=== PATIENT | female | born 1975 | race Caucasian/White ===

== ENCOUNTER 2019-01-30 09:18 | Outpatient (CLI) | payer OTHER, SELFPAY ==
[2019-01-30 11:00] LABS: TSH (W/Ref FT4) 2.37 uIU/mL (0.358-3.74)
== END 2019-01-30 09:38 ==
PROVIDERS: PCP Internal Medicine; Referring Provider Internal Medicine; Visit Provider Nurse Practitioner Family
DX: Z86.39 Personal history of other endocrine, nutritional and metabolic disease (principal)
CPT/HCPCS: 36415; 84443

== ENCOUNTER 2019-08-28 00:54 | Outpatient (CLI) | payer OTHER, SELFPAY ==
--- NOTE | 2019-08-28 15:34 | DI.MAMMO_ITS ---
EXAM: MG MAMMO SCREENING CLINICAL HISTORY: screening TECHNIQUE: Mammograms were interpreted according to the usual protocol including computer analysis w [employer] CAD system, tomosynthesis and C-view imaging. COMPARISON: FINDINGS: Breasts are of moderate density with fairly symmetrical distribution of fibroglandular tissue. No do minant mass or clumped microcalcification is identified in either breast. There are biopsy clips in the right breast. Comparison with prior studies including July 2017 shows no gross interval conley ge appearance of the breasts except for interval decrease in prominence, probably representing resect ion, of 2 areas of nodularity of the right breast. IMPRESSION: No specific evidence of malignancy at this time. Routine screening examinations are suggested at yea rly intervals due to history of breast carcinoma Category 1, breast density category B
== END 2019-08-28 01:14 ==
PROVIDERS: PCP Internal Medicine; Visit Provider Nurse Practitioner Family
DX: Z12.31 Encounter for screening mammogram for malignant neoplasm of breast (principal); Z85.3 Personal history of malignant neoplasm of breast
CPT/HCPCS: 77063; 77067

== ENCOUNTER 2020-09-17 00:55 | Outpatient (CLI) | payer OTHER, BC, SELFPAY ==
--- NOTE | 2020-09-17 07:30 | DI.MAMMO_ITS ---
EXAM: MG MAMMO SCREENING CLINICAL HISTORY: screening,Z12.39 TECHNIQUE: Bilateral full field digital CC and MLO mammographic images were obtained with 3D tomosyn thesis and utilizing computer aided detection (CAD). COMPARISON: Available for comparison. FINDINGS: Masses/Architectural Distortion: None seen. There are old right breast biopsy clips again seen. Ther e is a stable of right retroareolar nodular density. Microcalcifications: No suspicious pleomorphic-type are seen. Skin Thickening/Nipple Retraction: None. IMPRESSION: 1. No significant interval change with no specific features of malignancy noted. 2. Unless there is more urgent need, screening mammography is recommended, as per [employer] [place] guidelines. BI-RADS Category 2 - Benign Findings Breast Density - Category B - Scattered areas of fibroglandular density Breast density category C or D implies that the patient has dense breast tissue. Dense breast tissue is very common and is not abnormal but dense breast tissue can make it harder to find cancer on a ma mmogram. Also, dense breast tissue may increase their breast cancer risk. This information about the result of the mammogram report was provided to the patient to raise their awareness. Use this report when you speak with the patient about their risks for breast cancer, which includes their family hist ory. At that time, you may recommend for more screening tests (Ultrasound or MRI) as they might be us eful based on their risk. A negative radiographic report should not delay biopsy if a dominant or clinically suspicious mass is present. Up to ten percent of cancers are not identified on mammography. A negative report may reinforce clinical impression. Adenosis and dense breasts may obscure an underlying neoplasm. False positive reports average 6 to 10%. Patient will receive a letter notifying them of these results.
== END 2020-09-17 00:56 ==
PROVIDERS: PCP Internal Medicine; Visit Provider Nurse Practitioner Family
DX: Z12.31 Encounter for screening mammogram for malignant neoplasm of breast (principal)
CPT/HCPCS: 77063; 77067

== ENCOUNTER 2021-03-17 10:49 | Outpatient (REF) | payer OTHER, BC, SELFPAY ==
--- NOTE | 2021-03-17 10:00 | PAPFT_PTH ---
PATIENT: Ilda Trotter LOC: [facility] U#:[id number] AGE/SX: 45/F ROOM: RE03/17/[address]: SHARON Rondon : 1975 BED: DIS: 03/17/2021 SPEC #: [id number] RECD: 03/17/21 13:04 STATUS: DEMARIO REGayla #: [id number] AARON: 03/17/21 10:[address]: Flavia Lawson DEPT: PENDING SALE TO [facility] Cytology RECD BY: Bella Hollins ENTERED: 03/17/21 13:04 SP TYPE: PAPFT OTHR DR: Flavia Briceno Tissues: 1 - CX/ENDOCX FOR PAP SMEARS Procedures: PAP THIN PREP/UVM Screening HPV DNA PROBE Comments: [id number]
== END 2021-03-17 10:50 | disposition home or self-care (01) ==
LOC: LBN 10:49
PROVIDERS: PCP Internal Medicine; Visit Provider Nurse Practitioner Family
DX: Z12.4 Encounter for screening for malignant neoplasm of cervix (principal); Z11.51 Encounter for screening for human papillomavirus (HPV)
CPT/HCPCS: 88142; 87624

== ENCOUNTER 2021-11-27 12:45 | Outpatient (REF) | payer OTHER, BC, SELFPAY ==
[2021-11-27 11:33] LABS: Bilirubin Negative (Negative); Blood Negative (Negative); Clarity Clear (Clear); Glucose Negative (Negative); Ketones Negative (Negative); Leukocyte Esterase Negative (Negative); Nitrite Negative (Negative); Specific Gravity >= 1.030 (1.005-1.025); Urobilinogen 0.2 EU/dL (Up TO 0.2)
== END 2021-11-27 12:46 | disposition home or self-care (01) ==
LOC: LBN 12:45
PROVIDERS: PCP Internal Medicine; Visit Provider Nurse Practitioner Family
DX: R10.2 Pelvic and perineal pain (principal)
CPT/HCPCS: 81003; 87086

== ENCOUNTER 2021-12-15 00:17 | Outpatient (CLI) | payer OTHER, BC, SELFPAY ==
--- NOTE | 2021-12-15 06:45 | DI.MAMMO_ITS ---
Exam(s) MAMMO SCREENING EXAM: MAMMO SCREENING CLINICAL HISTORY: screening,z12.39 TECHNIQUE: Mammograms were interpreted according to the usual protocol including computer analysis w [employer] CAD system, tomosynthesis and C-view imaging. COMPARISON: 2013 through 2020 FINDINGS: The breasts are composed of scattered fibroglandular densities, Breast Density category B. No suspicious masses or suspicious microcalcifications are seen. Biopsy clips are again noted in the superior inferior right breast adjacent to small nodules. No skin thickening or abnormal axillary lymph nodes are seen. There has been no significant change from prior exams. IMPRESSION: BI-RADS Category 1, Negative mammogram Yearly screening mammography is recommended. Breast Density - Category B, scattered fibroglandular densities. A negative radiographic report should not delay biopsy if a dominant or clinically suspicious mass is present. Up to ten percent of cancers are not identified on mammography. A negative report may reinforce clinical impression. Adenosis and dense breasts may obscure an underlying neoplasm. False positive reports average 6 to 10%. Patient will receive a letter notifying them of these results.
== END 2021-12-15 00:37 ==
PROVIDERS: PCP Internal Medicine; Visit Provider Nurse Practitioner Family
DX: Z12.31 Encounter for screening mammogram for malignant neoplasm of breast (principal)
CPT/HCPCS: 77063; 77067

== ENCOUNTER 2022-10-30 16:26 | Emergency (ER) | payer BC, SELFPAY ==
[2022-10-30 16:29] VITALS: BP 132/90; PULSE 62; RESP 18; TEMP 36.6; O2SAT 100
--- NOTE | 2022-10-30 16:43 | ED.GENADUL_ITS ---
Discharge Plan Disposition Patient Disposition: Home Discharge Details Clinical Impression: Acute right flank pain Primary Care Provider: Flavia Briceno ED Provider: Jimmie Frank Home Meds and New Rx's Prescriptions: Continued clobetasol 0.05 % ointment 1 applic topical .COMPLEX Qty: 45 4RF Rx Instructions: 1 applic topically rub tiny amount on vulva daily x2w then twice weekly; estradiol [Estrace] 0.01 % (0.1 mg/gram) cream 1 appful vaginal DAILY Qty: 42.5 4RF Rx Instructions: for for 2 weeks then twice weekly estradiol 1 mg tablet See Rx Instructions .ROUTE .COMPLEX Qty: 90 3RF Dose Instruction: TAKE ONE TABLET BY MOUTH EVERY DAY Rx Instructions: TAKE ONE TABLET BY MOUTH EVERY DAY Discharge Instructions Instructions: Flank Pain (ED) Additional Instructions: Please read all of the information that accompanies these instructions. You were seen in the emergency department for your flank pain. Your CAT scan showed no acute abnormalities in your stomach. Please schedule an appointment with your primary care provider next week. Please return to the emergency department if you develop fevers vomiting that does not stop or notice any rash on her abdomen. Medical Decision Making This is an overall well-appearing normothermic and not tachycardic 46-year-old female with right-sided flank pain and right lower quadrant pain concerning for ureterolithiasis versus appendicitis versus atypical diverticulitis and possibly pancreatitis. Patient is not having any chest pain to suggest ACS. No cough nor shortness of breath to suggest pneumonia. I considered PE however the patient denies any shortness of breath and does not have any calf tenderness nor any recent immobilization to suggest increased risk of PE. Furthermore her pain radiates from her right flank down into her right lower quadrant making PE less likely. She is not technically PERC negative based on her hormone use however given my low suspicion for PE I did not feel that she required a D- dimer. Given remote history of laparoscopic cholecystectomy I am not concerned for cholecystitis. No vomiting to suggest SBO. No pain out of proportion to suggest necrotizing soft tissue infection. No rash to abdomen to suggest zoster. Patient is not recently nor is she having any left upper quadrant pain to suggest splenic arterial aneurysm. No fevers nor dysuria nor frequency so doubt pyelonephritis. No abnormal vaginal discharge to suggest PID. Will obtain labs, CT scan with IV contrast, and urinalysis. 8:07 PM Patient's labs did show trace ketonuria and she had very mild hyperglycemia with a serum glucose of 117. She had no anion gap and a normal bicarbonate so I am not concerned for DKA. Her lipase was normal. She had no anemia nor thrombocytopenia nor any leukocytosis. She had no episodes of emesis in the emergency department. I met with the patient and I advised her that if she developed any shortness of breath chest pain worsening abdominal pain any rash to her abdomen or if she had any concerns that she should return to the emergency department. I advised her of her contralateral left-sided nonobstructing nephrolithiasis. I asked health unit aide tech Lauren to arrange for outpatient PCP follow-up in the next week. HPI General Date/Time Provider Initiated Documentation: 10/30/22 16:43 . HPI Narrative: This is a 46-year-old female with elevated BMI in the emergency department in the setting of right-sided flank pain and right lower quadrant tenderness. She denies history of kidney stones that have been diagnosed but feels as if she may have had them in the past. She said that the pain radiates from her right right flank down into her bladder. Her symptoms began yesterday. She has had similar symptoms in the past but her symptoms worsened today. She has not had any recent falls in the right side. She denies any recent strenuous activities. Remote surgical history significant for hysterectomy oophorectomy laparoscopic cholecystectomy and gastric sleeve. She has been nauseous today but not vomiting. She denies dysuria and frequency. No fevers chest pain history of PEs or DVTs. In the setting of her remote hysterectomy she is on estradiol. She has had no cough nor any shortness of breath although she does note that her pain is worse when she takes a deep breath. She has not noticed any rash to her abdomen. Related Data Home Medications Medication Instructions Recorded Confirmed estradiol 1 mg tablet See Rx Instructions .Route 05/13/22 06/24/22 .COMPLEX #90 tabs clobetasol 0.05 % topical ointment 1 applic topical .COMPLEX #45 grams 06/24/22 06/24/22 estradiol 0.01% (0.1 mg/gram) 1 appful vaginal DAILY #42.5 grams 06/24/22 06/24/22 vaginal cream (Estrace) Previous Rx's Medication Instructions Recorded estradiol 1 mg tablet See Rx Instructions .Route 05/13/22 .COMPLEX #90 tabs clobetasol 0.05 % topical ointment 1 applic topical .COMPLEX #45 grams 06/24/22 estradiol 0.01% (0.1 mg/gram) 1 appful vaginal DAILY #42.5 grams 06/24/22 vaginal cream (Estrace) Allergies Allergy/AdvReac Type Severity Reaction Status Date / Time NSAIDS (Non-Steroidal AdvReac Verified 10/30/22 16:35 Anti-Inflamma General Stated Complaint: FlankPain ARMANDO: 4 PFSH All Active Problems (Updated 10/30/22 @ 20:09 by Jimmie Frank MD) Acute right flank pain (Acute) Abnormal skin of vulva (Acute) Symptoms consistent with lichenification rather than decreased estrogen. Plan Rx for clobetasol and follow-up 06/2022 Vaginal dryness, menopausal (Acute) Dyspareunia in female (Acute) Hormone replacement therapy (Acute) 2016. Estradiol 1 mg/day after surgical menopause Medical History (Updated 10/30/22 @ 20:09 by Jimmie Frank MD) Diabetes Had Gastric sleeve procedure08/27/20 DM resolved Erythema nodosum Hypothyroid Vaginal bleeding 11/2021. Single episode after supracervical hysterectomy and BSO. Patient on estrogen 1 mg/day since 2016. No plan to change hormone formulation. Surgical History (Updated 06/24/22 @ 18:36 by Mary Hopper MD) section X 2 Cholecystectomy Endometrial Biopsy 09/11/14-[facility] [place] [facility] Hysterectomy, Laproscopic (~01/2017) Supra - cervical Oophrectomy, Left Oophrectomy, Right (~01/2017) R Salpingo-oophrectomy with hyst S/P laparoscopic supracervical hysterectomy (08/06/17) and R salpingo-oophrectomy 2016 - Dr Jaleel Perkins L oophrectomy Status post tonsillectomy and adenoidectomy Tonsillectomy and adenoidectomy Family History Father Leukemia Grandfather Diabetes CAD (coronary artery disease) Maternal Aunt Personal history of malignant neoplasm BREAST Brother Cancer of kidney Maternal Cousin Breast cancer paternal first cousin Maternal Cousin Breast cancer paternal first cousin Social History (Updated 11/16/22 @ 18:33 by Mary Hopper MD) Smoking/Tobacco Use Status: Never Smoking risk assessment performed?: Yes Drug use: Never Household members: spouse Number of Children: 2 current occupation: [employer] Do you feel safe at home: Yes Female Reproductive History Menstrual Menopause type: surgical History History 2 Para 2 Hx # Term Pregnancies Multiple births Hx # Pregnancies Ectopic pregnancies AB induced Hx Number of Living Children AB spontaneous Exam Narrative Exam Narrative: General: Well-appearing in no acute distress speaking in complete sentences. Head: Normocephalic, atraumatic Ear, nose, mouth, throat: Grossly normal inspection. Normal voice, handling secretions normally. Neck: Trachea midline. Cardiovascular: Well-perfused distal extremities. Regular rate and rhythm. Respiratory: Nonlabored respiration. Clear lungs bilaterally Gastrointestinal: Moderately distended abdomen with right CVA tenderness. Right lower quadrant tenderness. No rebound. No guarding. Musculoskeletal: No edema. Moving all 4 extremities spontaneously. Skin: Normal for age and race, grossly normal temperature and turgor. No acute rash. Neurologic: Alert and appropriate, no apparent acute deficits. Psychiatric: Mood and manner are appropriate. Grooming and personal hygiene are appropriate. Course Vital Signs Vital signs: Vital Signs Temperature 36.6 C 10/30/22 16:29 Pulse 62 10/30/22 16:29 Respiratory Rate 18 10/30/22 16:29 Blood Pressure 132/90 10/30/22 16:29 Pulse Oximetry 100 10/30/22 16:29 Temperature 36.6 C 10/30/22 16:29 Temperature Source Oral 10/30/22 16:29 Pulse 62 10/30/22 16:29 Respiratory Rate 18 10/30/22 16:29 Blood Pressure 132/90 10/30/22 16:29 Blood Pressure Position Sitting 10/30/22 16:29 Pulse Oximetry 100 10/30/22 16:29 Oxygen Delivery Method Room Air 10/30/22 16:29 Oxygen Flow Rate 0 10/30/22 16:29
--- NOTE | 2022-10-30 16:45 | DI.CT_ITS ---
Exam(s) CT ABDOMEN PELVIS W EXAM: CT ABDOMEN PELVIS W CLINICAL HISTORY: Right flank pain. TECHNIQUE: Imaging Protocol: Axial computed tomography images with coronal and sagittal reformatted images were created and reviewed CONTRAST MATERIAL: Intravenous: Omnipaque 350 Contrast volume:100 ml Oral: / no COMPARISON: No exams were available for comparison FINDINGS: ABDOMEN: Lung Bases: Normal where visualized. Small hiatal hernia. Suture material noted at lower esophagus and upper stomach. Liver: Normal density. No measurable mass. Gallbladder and biliary tract: Status post cholecystectomy. No radiodense calculus or dilation. Pancreas: Normal density, no abnormal calcifications or inflammatory process. Spleen: Cysts versus hemangioma superior spleen. Kidneys: Normal size, contour and axis. Tiny nonobstructing stone lower pole left kidney. No obstru ctive uropathy. No suspicious masses seen. Adrenal glands: No masses seen. Abdominal Aorta: Abdominal portion non-dilated. Soft tissues: Unremarkable. PELVIS: Bladder: No gross wall thickening. No calculi.No focal mass. Bowel: Diverticulosis. No evidence of diverticulitis. No obstruction. No bowel wall thickening. A ppendix normal. Peritoneal cavity: No ascites, collection or mesenteric inflammatory response. Bones: Degenerative changes in the lumbar spine greatest at L4-5 and L5-S1. Reproductive organs: Within normal limits. Lymph nodes: Unremarkable. Impression: No acute abnormality. Incidental findings as mentioned above. RADIATION DOSE DELIVERED: 1,357.33mGy.cm Total DLP DATA REPOSITORY: All CT scans at this facility are submitted to the National Radiology Data Registry (NRDR) Dose Index Registry (DIR) with the [employer] (ACR). RADIATION OPTIMIZATION: All CT scans at this facility use at least one of these dose optimization te chniques: automated exposure control; mA and/or kV adjustment per patient size (includes targeted exa ms where dose is matched to clinical indication); or iterative reconstruction.
[2022-10-30 17:03] LABS: Abs Immature Grans 0.02 10^3/uL (0.0-0.06); Absolute Basophil Count 0.03 10^3/uL (0.0-0.2); Absolute Eosinophil Count 0.16 10^3/uL (0.0-0.7); Absolute Lymphocyte Count 2.82 10^3/uL (1.2-3.4); Absolute Monocyte Count 0.47 10^3/uL (0.1-0.8); Absolute Neutrophil Count 3.78 10^3/uL (1.2-6.7); Basophils % 0.4; Eosinophils % 2.2; HCT 40.5 % (36.0-46.0); HGB 13.2 g/dL (11.2-15.7); Immature Grans % 0.3; Lymphocytes % 38.7; MCH 29.1 pg (27.0-33.0); MCHC 32.6 % (32.0-36.0); MCV 89 fL (80-95); MPV 11.4 fL (8.0-11.0); Monocytes % 6.5; Neutrophils % 51.9; Platelet Count 267 10^3/uL (130-400); RBC 4.53 10^6/uL (3.93-5.22); RDW 12.7 % (11.7-14.6); RDW-SD 41.7 fL; WBC 7.28 10^3/uL (4.4-10.8)
[2022-10-30 17:06] LABS: Bilirubin Negative (Negative); Blood Negative (Negative); Clarity Clear (Clear); Glucose Negative (Negative); Ketones Trace mg/dL (Negative); Leukocyte Esterase Negative (Negative); Nitrite Negative (Negative); Specific Gravity >= 1.030 (1.005-1.025); Urobilinogen 0.2 mg/dL (Up to 0.2); pH 5.5 (5-8)
--- OUTSIDE RECORDS SUMMARY | 2022-10-30 17:09 | XMS_ITS | Continuity of Care Document ---
Author Name Unknown Organization [facility] Address [address] [place] [address] Care Team Providers Care Taxicab Starter Name Role Phone Janak, Flavia Mynor Primary Care Physician Encounter [facility] Date(s): 05/29/22 - 05/29/22 [facility] [address] [place] [address] Discharge Disposition: Home or Self Care Attending Physician: Soraida Silver PA-C Admitting Physician: Soraida Silver PA-C Allergies, Adverse Reactions, Alerts No Known Medication Allergies Assessment and Plan Future Appointments Diagnostic Tests Pending * Urinalysis Notify Lab 05/29/22 Immunizations Given and Recorded Vaccine Date Status Refusal Reason SARS-CoV-2 (COVID-19) mRNA-1273 vaccine 1 03/25/21 Recorded SARS-CoV-2 (COVID-19) mRNA BNT-162b2 vax 03/25/21 Recorded SARS-CoV-2 (COVID-19) mRNA BNT-162b2 vax 03/04/21 Recorded tetanus/diphth/pertuss (Tdap) adult/adol 09/26/08 Recorded Not Given Vaccine Date Status Refusal Reason Td(adult) unspecified formulation 2 02/24/22 Not G iven Patient Refuses Td(adult) unspecified formulation 3 02/24/22 Not G iven Patient Refuses Td(adult) unspecified formulation 02/18/22 Not Giv en Patient Refuses influenza, unspecified formulation 4 02/24/22 Not Given Patient Refuses 1Result Comment: duplicate 2Result Comment: Last modified on 05-03-2019 3Result Comment: Last modified on 06-20-2021 4Result Comment: Last Modified on 05-03-2019 Medications biotin 1 tab, Oral, Daily, 0 Refill(s) Start Date: 02/23/22 Status: Ordered buPROPion 150 mg/24 hours (XL) oral tablet, extended release 150 mg 1 tab, Oral, every 24 hr, # 90 tab, 0 Refill(s) Start Date: 02/23/22 Status: Ordered Calcium 600+D oral tablet 0 Refill(s) Start Date: 02/23/22 Status: Ordered collagen (bovine) collagen (bovine), 2 tab, Oral, Daily, per pt Start Date: 02/24/22 Status: Ordered diclofenac 1% topical gel Topical, # 100 g, 0 Refill(s) Start Date: 02/23/22 Status: Ordered diclofenac 1% topical gel 1 genia, Topical, QID, Apply 2 grams to the affected area(s) Start Date: 02/24/22 Status: Ordered estradiol 1 mg oral tablet 1 mg = 1 tab, Oral, Daily, # 90 tab, 0 Refill(s) Start Date: 02/23/22 Status: Ordered HYDROcodone-acetaminophen 10 mg-325 mg oral tablet 1 tab, Oral, every 6 hr, 0 Refill(s) Start Date: 02/24/22 Status: Ordered [facility] COVID-19 AG HOME TEST [facility] COVID-19 AG HOME TEST, See Instructions, Inject as directed per standing order Start Date: 02/24/22 Status: Ordered lidocaine 2% topical gel with applicator 1 genia, Topical, TID, PRN pain, APPLY a pea sized amount to anus Start Date: 02/24/22 Status: Ordered multivitamin adult, oral tablet 1 tab, Oral, BID, 0 Refill(s) Start Date: 02/23/22 Status: Ordered multivitamin adult, oral tablet 1 tab, Oral, BID, er pt Start Date: 02/24/22 Status: Ordered Nifedipine Rect Oint 0.2% Cmpd Nifedipine Rect Oint 0.2% Cmpd, See Instructions, 0.2% in aquaphor base, apply a pea size amount toanus, 3 times daily. Dipense 25 g Start Date: 02/24/22 Status: Ordered Nutritional Supplement Collagen 2 tabs daily, Supply, See instructions, # 1 EA, 0 Refill(s) Start Date: 02/23/22 Status: Ordered Paxlovid 150 mg-100 mg (300 mg-100 mg Dose) oral tablet 3 tab, Oral, BID, Take two 150 mg nirmatrelvir tablets with one 100 mg ritonavir tablet at the sametime as indicated on the blister cards. Provide Fact Sheet for Patients/Caregivers, # 30 tab, 0 Refill(s), Pharmacy: [id number] Start Date: 03/27/22 Stop Date: 04/01/22 Status: Ordered Vitamin B12 1 tab, Oral, Daily, 0 Refill(s) Start Date: 02/23/22 Status: Ordered Vitamin B12 1 tab, Oral, Daily, per pt Start Date: 02/24/22 Status: Ordered Vitamin D3 5000 intl units oral capsule 125 mcg = 1 cap, Oral, Daily, with food, # 100 cap, 0 Refill(s) Start Date: 02/23/22 Status: Ordered Vitamin D3 5000 intl units oral tablet 125 mcg = 1 tab, Oral, Daily, per pt Start Date: 02/24/22 Status: Ordered Problem List Condition Confirmation Course Effective Dates Status Health Status Informant Abdominal pain Confirmed Active Adjustment insomnia Confirmed Active Acute upper respiratory infection Confirmed Active Disorder of hyperalimentation Confirmed Active Erythema nodosum Confirmed Active Functional diarrhea Confirmed Active Hypothyroidism Confirmed Active IUCD status Confirmed Active Neuropathy Confirmed Active Postartificial menopausal syndrome Confirmed Active Severe obesity Confirmed Active Type 2 diabetes mellitus without complication Confirmed Active Procedures Procedure Date Related Diagnosis Body Site Status Sleeve resection of stomach (procedure) 08/27/20 Completed Colonoscopy 1 06/08/19 Completed Hysterectomy 2 01/12/17 Completed Laparoscopy with removal of adnexal structures 3 02/13/14 Completed EGD - Esophagogastroduodenoscopy 11/14/13 Completed section 4 Comple yuliet Cholecystectomy Completed Tonsillectomy Completed 17 year call back (2025) 2removal of fibroid uterus and infraumbilical omental adhesion 3laparscopic salpingo-oophorectomy, left 4x 2 Results Laboratory List Name Date .Urinalysis POCT 05/29/22 Most recent to oldest [Reference Range]: 1 Method of Collect POC Clean Catch *NA* (05/29/22 11:17 AM) Specific [place], Ur POC >1.030 *NA* (05/29/22 11:17 AM) Specimen Color POC Yellow *NA* (05/29/22 11:17 AM) Glucose, Urine POC [Negative] Negative (05/29/22 11:17 AM) Bilirubin, Urine POC [Negative] Negative (05/29/22 11:17 AM) Ketones, Urine POC [Negative] Negative (05/29/22 11:17 AM) Blood, Urine POC [Negative] Negative (05/29/22 11:17 AM) pH, Urine POC 6 *NA* (05/29/22 11:17 AM) Protein, Urine POC [Negative] Negative (05/29/22 11:17 AM) Urobilinogen, Urine POC Normal (05/29/22 11:17 AM) Nitrite, Urine POC [Negative] Negative (05/29/22 11:17 AM) Leuk Esterase, Urine POC [Negative] Nega tive (05/29/22 11:17 AM) Clarity, Urine POC [Clear] Clear (05/29/22 11:17 AM) Social History Social History Type Response Tobacco Never tobacco user T obacco Use:. Sex Female Patient Care team information Personnel Name: Flavia Briceno MD Address: Address: [address] [address]- [place]
--- OUTSIDE RECORDS SUMMARY | 2022-10-30 17:09 | XMS_ITS | Continuity of Care Document ---
Author Name Unknown Organization [facility] Address [address] [place] [address] Care Team Providers Care Pageant Director Name Role Phone Flavia Briceno Primary Care Physician Encounter [facility] Date(s): 05/29/22 - 05/29/22 [facility] [address] [place] [address] Discharge Disposition: Home or Self Care Attending Physician: Flavia Briceno MD Admitting Physician: Flavia Briceno MD Referring Physician: Flavia Briceno MD Allergies, Adverse Reactions, Alerts No Known Medication Allergies Assessment and Plan Future Appointments Immunizations Given and Recorded Vaccine Date Status [...] Patients/Caregivers, # 30 tab, 0 Refill(s), Pharmacy: [id number] Start Date: 03/27/22 Stop Date: 04/01/22 [...] 4x 2 Results Laboratory List Name Date Amylase Level 05/29/22 Automated Diff 05/29/22 C-Reactive Protein High Sensitivity 05/10 08/30 CBC w/ Diff 05/29/22 Comprehensive Metabolic Panel (CMP) 05/10 08/30 Lipase Level 05/29/22 Most recent to oldest [Reference Range]: 1 WBC [5.0-10.0 x10^3/mcL] 5.9 x10^3/mcL (05/29/22:56 AM) RBC [4.1-5.3 x10^6/mcL] 4.5 x10^6/mcL (05/29/22:56 AM) Neutro Auto [40.0-75.0 %] 47.6 % (05/29/22:56 AM) Lymph Auto [20.0-50.0 %] 42.7 % (05/29/22:56 AM) [place] Auto [2.0-15.0 %] 7.0 % (05/29/22:56 AM) Basophil Auto [0.0-1.0 %] 1.0 % (05/29/22:56 AM) BUN [7-18 mg/dL] 15 mg/dL (05/29/22: AM) Glucose Level [74-106 mg/dL] 92 mg/dL (05/29/22:56 AM) Potassium Level [3.5-5.1 mmol/L] 4.6 mmo l/L (05/29/22:56 AM) MCV [80.0-103.0 fL] 90.6 fL (05/29/22:56 AM) AST [15-37 unit/L] 14 unit/L *LOW* (05/29/22 AM) Amylase Level [25-115 unit/L] 49 unit/L (05/29/22:56 AM) ALT [16-63 unit/L] 20 unit/L (05/29/22:56 AM) MCHC [31.0-35.0 g/dL] 33.3 g/dL (05/29/2256 AM) Sodium Level [136-145 mmol/L] 140 mmol/L (05/29/22:56 AM) Hct [37.0-47.0 %] 40.6 % (05/29/22 AM) Lipase Level [16-77 unit/L] 33 unit/L (05/29/2256 AM) Calcium Level [8.5-10.1 mg/dL] 9.5 mg/dL (05/29/2256 AM) Albumin Level [3.4-5.0 g/dL] 3.9 g/dL (05/29/22 11:56 AM) Protein Total [6.4-8.2 g/dL] 7.3 g/dL (05/29/22 11:56 AM) MCH [26.0-32.0 pg] 30.1 pg (05/29/22 11:56 AM) Neutro Absolute 2.8 x10^3/mcL *NA* (05/29/22 11:56 AM) Bilirubin Total [0.2-1.0 mg/dL] 0.5 mg/d L (05/29/22 11:56 AM) Hgb [12.0-16.0 g/dL] 13.5 g/dL (05/29/22 11:56 AM) Alk Phos [46-146 unit/L] 54 unit/L (05/29/22 11:56 AM) Platelets [130-450 x10^3/mcL] 254 x10^3/ mcL (05/29/22 11:56 AM) CO2 [21-32 mmol/L] 31 mmol/L (05/29/22 11:56 AM) eGFR Non-AA [>=60] 87 (05/29/22 11:56 AM) eGFR AA [>=60] 87 (05/29/22 11:56 AM) Chloride Level [98-107 mmol/L] 103 mmol/ L (05/29/22 11:56 AM) RDW-CV [11.7-17.0 %] 12.6 % (05/29/22 11:56 AM) Imm Gran Auto [0.0-0.9 %] 0.2 % (05/29/22 11:56 AM) CRP High Sens [0.00-3.00 mg/L] 3.21 mg/L *HI* (05/29/22 11:56 AM) Creatinine Level [0.55-1.02 mg/dL] 0.83 mg/dL (05/29/22 11:56 AM) Eos, Auto [1.0-6.0 %] 1.5 % (05/29/22 11:56 AM) Social History Social History Type Response Tobacco Never tobacco user T obacco Use:. Sex Female Patient Care team information Personnel Name: Flavia Briceno MD Address: Address: [address] [place], [place] [address]
[2022-10-30 17:30] LABS: ALT 20 U/L (14-59); AST 14 U/L (15-37); Alkaline Phosphatase 77 U/L (46-116); Anion Gap 7.3 mmol/L (3-11); BUN 19 mg/dL (7-18); Bilirubin, Total 0.2 mg/dL (0.2-1.0); CO2 29.7 mmol/L (21.0-32.0); CREATININE 0.8 mg/dL (0.55-1.02); Calcium 9.3 mg/dL (8.5-10.1); Chloride 105 mmol/L (98-107); Estimated GFR 90.83 (mL/min/1.73m2); Glucose 117 mg/dL (74-106); Lipase 49 U/L (16-77); Potassium 3.8 mmol/L (3.5-5.1); Sodium 142 mmol/L (136-145); Total Protein 7.7 g/dL (6.4-8.2)
[2022-10-30] MEDS: Omnipaque 350 MG/ML 500 ML BTL-Imaging package IJ (18:24)
[2022-10-30] MEDS: Normal Saline - Diluent 50 ML VIAL IJ (18:24)
[2022-10-30 18:35] VITALS: BP 115/64; PULSE 71; RESP 18; O2SAT 94
--- NOTE | 2022-10-30 18:38 | DI.VRAD_ITS ---
PROCEDURE INFORMATION: Exam: CT Abdomen And Pelvis With Contrast Exam date and time: 10/30/2022 6:14 PM Age: 46 years old Clinical indication: Other: Ight flank pain TECHNIQUE: Imaging protocol: Computed tomography of the abdomen and pelvis with contrast. Contrast material: 350; Contrast volume: 100 ml; Contrast route: INTRAVENOUS (IV); COMPARISON: US PELVIS TRANSVAGINAL 12/30/2021 8:11 AM FINDINGS: Diaphragm: Tiny hiatal hernia in association with postsurgical changes in the stomach. Liver: No mass. Gallbladder and bile ducts: Cholecystectomy. No significant biliary dilation or radiopaque stones in the biliary tree. Pancreas: No ductal dilation. No masses. Spleen: No splenomegaly or focal lesions. Adrenal glands: No mass. Kidneys and ureters: No renal masses or hydronephrosis bilaterally. Subcentimeter nonobstructive left nephrolithiasis. No convincing right-sided stones on postcontrast imaging, decreased sensitivity for small stones. Stomach and bowel: Colonic diverticulosis without diverticulitis. No focal pathology in the small bowel. Appendix: Normal morphology of the appendix. Intraperitoneal space: No free air. No significant fluid collection. Vasculature: No abdominal aortic aneurysm. Lymph nodes: No significantly enlarged lymph nodes. Urinary bladder: Unremarkable as visualized. Reproductive: Unremarkable as visualized. Bones/joints: Degenerative changes in the spine. No acute fracture or subluxation. Soft tissues: No suspicious lesions. IMPRESSION: 1. No acute findings. 2. Incidental findings as described. Dictated and Authenticated by: Juliana Lacey MD. Ordering:JOHN Samuel MD
--- NOTE | 2022-10-30 20:12 | NUR.NOTE ---
Referral to Care Management to refer patient to pcp Flavia Briceno [facility] to f/u week of 11/02 for flank pain.Nursing Note:
[2022-10-30 20:25] VITALS: BP 124/72; PULSE 61; RESP 16; TEMP 36.6; O2SAT 100
--- NOTE | 2022-11-02 07:35 | PDOC.ERCMACT ---
- If Service Date Differs Date of service: 11/02/22 Time of Service: 07:35 Care Management Activity Note Ilda is seen in the ED for flank pain. At the request of ED provider, CM contacts [facility], Ilda's PCP, to assist her in obtaining a follow up appointment this week.
== END 2022-10-30 20:28 | disposition home or self-care (01) ==
PROVIDERS: Emergency Provider Emergency Medicine; PCP Internal Medicine
DX: R10.31 Right lower quadrant pain (principal); R10.813 Right lower quadrant abdominal tenderness; E11.65 Type 2 diabetes mellitus with hyperglycemia; E03.9 Hypothyroidism, unspecified; Z90.49 Acquired absence of other specified parts of digestive tract
CPT/HCPCS: 80053; 83690; 99285; 74177; 81003; 85025; 99282

== ENCOUNTER 2022-12-18 00:09 | Outpatient (CLI) | payer BC, SELFPAY ==
--- NOTE | 2022-12-18 | DI.MAMMO_ITS ---
Exam(s) MAMMO SCREENING EXAM: MAMMO SCREENING CLINICAL HISTORY: SCREENING MAMMO FOR BREAST CANCER Z00.00 ADULT MEDICAL EXAM TECHNIQUE: Mammograms were interpreted according to the usual protocol including computer analysis w [employer] CAD system, tomosynthesis and C-view imaging. COMPARISON: 2013 through 2021 FINDINGS: The breasts are composed of scattered fibroglandular densities, Breast Density category B. No suspicious masses or suspicious microcalcifications are seen. Two biopsy marker clips are noted i n the right breast, 1 superiorly and 1 inferiorly. There are associated areas of nodularity which ap pear unchanged. No skin thickening or abnormal axillary lymph nodes are seen. There has been no significant change from prior exams. IMPRESSION: BI-RADS Category 1, Negative mammogram Yearly screening mammography is recommended. Breast Density - Category B, scattered fibroglandular densities. A negative radiographic report should not delay biopsy if a dominant or clinically suspicious mass is present. Up to ten percent of cancers are not identified on mammography. A negative report may reinforce clinical impression. Adenosis and dense breasts may obscure an underlying neoplasm. False positive reports average 6 to 10%. Patient will receive a letter notifying them of these results.
== END 2022-12-18 00:29 ==
LOC: DI 00:09
PROVIDERS: PCP Internal Medicine; Visit Provider Internal Medicine
DX: Z00.00 Encounter for general adult medical examination without abnormal findings (principal)
CPT/HCPCS: 77063; 77067

== ENCOUNTER → 2023-12-20 01:02 | Outpatient (CLI) | payer BC, SELFPAY ==
--- NOTE | 2023-12-20 | DI.MAMMO_ITS ---
Exam(s) MAMMO SCREENING EXAM: MAMMO SCREENING CLINICAL HISTORY: SCREENING, GENERAL ADULT MEDICAL EXAMINATION, Z00.00 TECHNIQUE: Bilateral full field digital CC and MLO mammographic images were obtained with 3D tomosyn thesis and utilizing computer aided detection (CAD). COMPARISON: Available for comparison. FINDINGS: Masses/Architectural Distortion: Unchanged areas of nodularity in the right breast. They are unchang ed biopsy clips present. No suspicious or new nodules or areas of architectural distortion are seen. Microcalcifications: No suspicious pleomorphic-type are seen. Skin Thickening/Nipple Retraction: None. IMPRESSION: 1. No significant interval change with no specific features of malignancy noted. 2. Unless there is more urgent need, screening mammography is recommended, as per [employer] guidelines. BI-RADS Category 2 - Benign Findings Breast Density - Category B - Scattered areas of fibroglandular density Breast density category C or D implies that the patient has dense breast tissue. Dense breast tissue is very common and is not abnormal but dense breast tissue can make it harder to find cancer on a ma mmogram. Also, dense breast tissue may increase their breast cancer risk. This information about the result of the mammogram report was provided to the patient to raise their awareness. Use this report when you speak with the patient about their risks for breast cancer, which includes their family hist ory. At that time, you may recommend for more screening tests (Ultrasound or MRI) as they might be us eful based on their risk. A negative radiographic report should not delay biopsy if a dominant or clinically suspicious mass is present. Up to ten percent of cancers are not identified on mammography. A negative report may reinforce clinical impression. Adenosis and dense breasts may obscure an underlying neoplasm. False positive reports average 6 to 10%. Patient will receive a letter notifying them of these results.
== END ==
PROVIDERS: PCP Internal Medicine; Visit Provider Internal Medicine
DX: Z12.31 Encounter for screening mammogram for malignant neoplasm of breast (principal)
CPT/HCPCS: 77063; 77067

== ENCOUNTER 2024-10-25 01:49 | Outpatient (CLI) | payer BC, SELFPAY ==
--- NOTE | 2024-10-25 06:45 | DI.US_ITS ---
Exam(s) US BREAST LT COMPLETE MG MAMMO DIAGNOSTIC BI EXAM: MG MAMMO DIAGNOSTIC BI CLINICAL HISTORY: lt breast pain, mastodynia,n64.4. COMPARISON: US US BREAST LT COMPLETE from 10/25/2024 TECHNIQUE: Craniocaudal and mediolateral oblique Full Field Digital Mammography views of both breast s with Computer Aided Diagnosis followed by Tomosynthesis and left breast ultrasound. FINDINGS: Mammography/Tomosynthesis: Masses: None seen. Architectural Distortion: None seen. Biopsy marker clips are again noted in the right breast. Microcalcifications: No suspicious pleomorphic-type are seen. Skin Thickening/Nipple Retraction: None. Left breast US: Echotexture: Normal appearance of the glandular tissue. Shadowing: No suspicious foci. Cyst: None. Solid lesions: None seen. Ductal dilation: None. IMPRESSION: 1. No evidence of malignancy is noted. 2. Unless there is more urgent need, follow-up screening mammography is recommended, as per [employer] guidelines. BI-RADS Category 1 - Negative Breast Density - Category B - Scattered areas of fibroglandular density A negative radiographic report should not delay biopsy if a dominant or clinically suspicious mass is present. Up to ten percent of cancers are not identified on mammography. A negative report may reinforce clinical impression. Adenosis and dense breasts may obscure an underlying neoplasm. False positive reports average 6 to 10%. Patient will receive a letter notifying them of these results.
== END 2024-10-25 02:09 ==
LOC: DI 01:49
PROVIDERS: PCP Internal Medicine; Visit Provider Obstetrics & Gynecology
DX: N64.4 Mastodynia (principal); Z12.31 Encounter for screening mammogram for malignant neoplasm of breast
CPT/HCPCS: 76642; 77062; 77066; G0279

== ENCOUNTER 2025-01-09 20:51 | Observation (INO) | payer BC, SELFPAY ==
[2025-01-09] VITALS (14 sets, daily range): BP systolic 121–154; BP diastolic 57–82; PULSE 65–74; RESP 10–18; TEMP 36.4; O2SAT 95–98
--- NOTE | 2025-01-09 21:00 | RT.EKG_ITS ---
APPROVED REPORT Exam: Resting ECG Reason for Exam: CVA symptoms Patient Location: E HR:66 bpm ECG Measurements Heart Rate 66 AXIS DC 157 P 67 QRSd 95 QRS 9 QT 434 T 42 QTc 453 Conclusion Sinus rhythm...normal P axis, V-rate 60- 99 Probable left atrial enlargement...P >50mS, <-0.10mV V1 Low voltage, precordial leads...precordial leads <1.0mV No acute ST changes.
--- NOTE | 2025-01-09 21:00 | DI.CT_ITS ---
Exam(s) CT BRAIN NECK CTA EXAM: CT BRAIN NECK CTA CLINICAL HISTORY: H/A; left sided numbness/weakness. TECHNIQUE: Imaging Protocol: Axial CT angiography was performed with multi-slice acquisition and mu lti-planar and/or 3D reconstructions. CONTRAST MATERIAL: Intravenous: Omnipaque 350 contrast volume:70 mL COMPARISON: No exams were available for comparison FINDINGS: CT Head W/O and W: Ventricles and Extra axial spaces: Normal in size and morphology for the patient's age. Hemorrhage: None. Cerebral parenchyma: No evidence of an acute territorial infarct. No mass effect is present. Midline shift: None. Brainstem/Cerebellum: Normal. Calvarium: Normal. Visualized Paranasal sinuses/Mastoids: Mucous retention cysts are seen in the right maxillary sinus i n the right sphenoid sinus. The remaining visualized paranasal sinuses and mastoid air cells are armando ar. Soft Tissues: Unremarkable. Enhancement: Unremarkable. CTA Neck W: Common Carotid: Right: No dissection, occlusion or significant stenosis. Left: No dissection, occlusion or significant stenosis. External Carotid: Right: No occlusion or significant stenosis. Left: No occlusion or significant stenosis. Internal Carotid: Right: No dissection, occlusion or significant stenosis. Left: No dissection, occlusion or significant stenosis. Vertebral Artery: Right: No dissection, occlusion or significant stenosis. Left: No dissection, occlusion or significant stenosis. Lung Apices: Normal. Bones: Within normal limits for the patient's age. Soft Tissues: Normal. Thyroid gland: Unremarkable. CTA Brain W: Internal Carotid Arteries: Normal. Anterior Cerebral Arteries: Right: No aneurysm, occlusion or significant stenosis. Left: No aneurysm, occlusion or significant stenosis. Middle Cerebral Arteries: Right: No aneurysm, occlusion or significant stenosis. Left: No aneurysm, occlusion or significant stenosis. Posterior Cerebral Arteries: Right: No aneurysm, occlusion or significant stenosis. Left: No aneurysm, occlusion or significant stenosis. Vertebral Arteries: Right: No aneurysm, occlusion or significant stenosis. Left: No aneurysm, occlusion or significant stenosis. Basilar Artery: No aneurysm, occlusion or significant stenosis. IMPRESSION: 1. No large vessel occlusion or significant stenosis on the CT angiography of the head. 2. No acute intracranial process. 3. No occlusion or significant stenosis on the CT angiography of the neck. 4. The preliminary VRAD report was reviewed. RADIATION DOSE DELIVERED: 2,279.59mGy.cm Total DLP DATA REPOSITORY: All CT scans at this facility are submitted to the National Radiology Data Registry (NRDR) Dose Index Registry (DIR) with the [employer] (ACR). RADIATION OPTIMIZATION: All CT scans at this facility use at least one of these dose optimization te chniques: automated exposure control; mA and/or kV adjustment per patient size (includes targeted exa ms where dose is matched to clinical indication); or iterative reconstruction.
--- NOTE | 2025-01-09 21:00 | ED.GENADUL_ITS ---
Discharge Plan Discharge Details Chief Complaint: GenMedical Clinical Impression: Headache, Left sided numbness Primary Care Provider: Flavia Briceno ED Provider: Dillan Brown [place] Meds and New Rx's Prescriptions: No Action clobetasol 0.05 % ointment 1 applic topical .COMPLEX Qty: 45 4RF Rx Instructions: 1 applic topically rub tiny amount on vulva twice daily x2w then twice weekly; estradiol [Estrace] 0.01 % (0.1 mg/gram) cream 0.5 appful vaginal .COMPLEX Qty: 42.5 4RF Rx Instructions: twice weekly HPI General Mode of arrival: ambulatory . Date/Time Provider Initiated Documentation: 01/09/25 20:59 . Limitations to Documentation: no limitations . Information obtained by: patient and RN notes reviewed . HPI Narrative: Patient presents to ED with complaint of headache and left-sided numbness and weakness. Patient reports that she developed a headache in the morning and it has persisted throughout the day. It is described frontal in nature but more on the left side. She has a little bit of photosensitivity. She does not typically get headaches and they certainly do not last this long. At around 3 PM she began to notice numbness and tingling on the left side of her body including the face, arm, leg. She has also felt that the arm and leg is heavy and weaker than usual. Symptoms have persisted, maybe a little worse prompting visit to the ED this evening. She denies any visual change. She denies any speech problem. She is able to ambulate but feels like she is not walking normally because of the weakness. She is not dragging her foot behind her. She denies any chest pain or neck pain. 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 She reports prior history of diabetes but after significant weight loss this has resolved. Denies any other significant medical history and denies smoking. Related Data Home Medications ?Medication ?Instructions ?Recorded ?Confirmed estradiol 0.01% (0.1 mg/gram) 0.5 appful vaginal .COMPLEX #42.5 07/07/23 10/11/24 vaginal cream (Estrace) grams clobetasol 0.05 % topical ointment 1 applic topical .COMPLEX #45 grams 10/18/24 10/18/24 Previous Rx's ?Medication ?Instructions ?Recorded estradiol 0.01% (0.1 mg/gram) 0.5 appful vaginal .COMPLEX #42.5 07/07/23 vaginal cream (Estrace) grams clobetasol 0.05 % topical ointment 1 applic topical .COMPLEX #45 grams 10/18/24 Allergies Allergy/AdvReac Type Severity Reaction Status Date / Time NSAIDS (Non-Steroidal AdvReac Unknown Verified 10/18/24 09:47 Anti-Inflamma General Stated Complaint: GenMedical ARMANDO: 3 Exam Narrative Exam Narrative: Const: WDWN female in NAD. VS per triage. HEENT: NC/AT. Normal facial exam. Eyes: PERRL and EOMI, VF in tact. Neck: Supple. Trachea midline. Lungs: Normal respiratory effort. Lungs are clear. Cor: RRR without murmur. Good radial pulses. Neuro: A+O x 3. Normal speech, mentation. Cranial nerves II - XII grossly intact. No gross motor or sensory deficit. She does report decreased sensation in left side compared to right but sensation is present. Strength is maybe subtly different on left but able to hold UE in place for 10 secs, LE in place for 5 sec and has no drift. FTN is normal. Ext: No C/C/E. Course Vital Signs Vital signs: Vital Signs Temperature 97.6 F 01/09/25 20:55 Pulse 68 01/09/25 20:55 Respiratory Rate 18 01/09/25 20:55 Blood Pressure 154/82 H 01/09/25 20:55 Pulse Oximetry 98 01/09/25 20:55 Temperature 97.6 F 01/09/25 20:55 Temperature Source Oral 01/09/25 20:55 Pulse 68 01/09/25 20:55 Respiratory Rate 18 01/09/25 20:55 Blood Pressure 154/82 H 01/09/25 20:55 Blood Pressure Position Sitting 01/09/25 20:55 Pulse Oximetry 98 01/09/25 20:55 Oxygen Delivery Method Room Air 01/09/25 20:55 Oxygen Flow Rate 0 01/09/25 20:55 Medical Decision Making Patient presenting to ED with headache for most of the day and onset of left- sided numbness and weakness at about 3 PM. She has no definite sensory deficit but reports change in sensation involving the left side of her body. She possibly has some subtle weakness on the left but has no pronator drift and is able to hold upper extremities and lower extremities for required count in regards to stroke scale. However, she does not have a prior history of significant headaches or migraines. Suspect this is probably an atypical mi graine but will need stroke evaluation. Therefore, IV established, laboratory studies sent, EKG and CTA brain and neck all ordered. Will obtain teleneuro consult as well. 22:00 - Patient's laboratory studies are all unremarkable other than glucose of 199. Imaging and neuroconsult still pending. 22:30 - CTA of brain and neck per radiology preliminary report is normal. Patient continues to have left-sided numbness and weakness but does report headache improved though not gone after prochlorperazine. Patient is pending neuro eval and [facility], Dr. Haij. Lab Data Lab results reviewed: Yes I reviewed the patient's lab results. Lab results narrative: see MDM ECG Data Attestation: I personally reviewed and interpreted this ECG (s) as follows: Prior ECG tracings: not available for review Interpretation: see EKG/MDM PFSH All Active Problems (Updated 01/09/25 @ 22:40 by Dillan Brown MD) Left sided numbness (Acute) Headache (Acute) Mastodynia (Acute) Abnormal skin of vulva (Acute) Symptoms consistent with lichenification rather than decreased estrogen. Plan Rx for clobetasol and follow-up 06/2022 Vaginal dryness, menopausal (Acute) Dyspareunia in female (Acute) Hormone replacement therapy (Acute) 2016. Estradiol 1 mg/day after surgical menopause Medical History Vaginal bleeding 11/2021. Single episode after supracervical hysterectomy and BSO. Patient on estrogen 1 mg/day since 2017. No plan to change hormone formulation. Hypothyroid Erythema nodosum Diabetes Had Gastric sleeve procedure08/27/20 DM resolved Surgical History S/P laparoscopic supracervical hysterectomy (08/06/17) and R salpingo-oophrectomy 2017 - Dr Jaleel Perkins L oophrectomy Status post tonsillectomy and adenoidectomy Tonsillectomy and adenoidectomy section X 2 Oophrectomy, Right (~01/2017) R Salpingo-oophrectomy with hyst Oophrectomy, Left Hysterectomy, Laproscopic (~01/2017) Supra - cervical Endometrial Biopsy 09/11/14-[facility] Cholecystectomy Family History Father Leukemia Grandfather Diabetes CAD (coronary artery disease) Maternal Aunt Personal history of malignant neoplasm BREAST Brother Cancer of kidney Maternal Cousin Breast cancer paternal first cousin Maternal Cousin Breast cancer paternal first cousin Social History Smoking/Tobacco Use Status: Never Smoking risk assessment performed?: Yes Alcohol Intake: never Drug use: Never Substance use type: does not use Household members: spouse Number of Children: 2 current occupation: [employer] Do you feel safe at home: Yes Female Reproductive History Menstrual Menopause type: surgical History History 2 Para 2 Hx # Term Pregnancies Multiple births Hx # Pregnancies Ectopic pregnancies AB induced Hx Number of Living Children AB spontaneous
[2025-01-09 21:20] LABS: Abs Immature Grans 0.01 10^3/uL (0.0-0.06); Absolute Basophil Count 0.04 10^3/uL (0.0-0.2); Absolute Eosinophil Count 0.12 10^3/uL (0.0-0.7); Absolute Lymphocyte Count 2.27 10^3/uL (1.2-3.4); Absolute Monocyte Count 0.33 10^3/uL (0.1-0.8); Absolute Neutrophil Count 3.03 10^3/uL (1.2-6.7); Basophils % 0.7 %; Eosinophils % 2.1 %; HCT 40.3 % (36.0-46.0); HGB 13.3 g/dL (11.2-15.7); Immature Grans % 0.2 %; Lymphocytes % 39.1 %; MCH 29.1 pg (27.0-33.0); MCV 88 fL (80-95); MPV 11.1 fL (8.0-11.0); Monocytes % 5.7 %; Neutrophils % 52.2 %; Platelet Count 254 10^3/uL (130-400); RBC 4.57 10^6/uL (3.93-5.22); RDW 12.8 % (11.7-14.6); RDW-SD 41.3 fL
[2025-01-09 21:34] LABS: PTT Activated 24.3 sec (20.6-30.2); Prothrombin Time 9.9 sec (9.1-11.1)
[2025-01-09 21:35] LABS: ALT 41 U/L (14-59); AST 21 U/L (15-37); Albumin 4.1 g/dL (3.4-5.0); Alkaline Phosphatase 100 U/L (46-116); Anion Gap 9.7 mmol/L (3-11); BUN 15 mg/dL (7-18); Bilirubin, Total 0.3 mg/dL (0.2-1.0); CO2 28.3 mmol/L (21.0-32.0); CREATININE 0.7 mg/dL (0.55-1.02); Calcium 9.4 mg/dL (8.5-10.1); Chloride 102 mmol/L (98-107); Estimated GFR 104.65 (mL/min/1.73m2); Glucose 199 mg/dL (74-106); Magnesium 1.9 mg/dL (1.8-2.4); Potassium 4.1 mmol/L (3.5-5.1); Sodium 140 mmol/L (136-145); Total Protein 7.4 g/dL (6.4-8.2)
[2025-01-09] MEDS: Omnipaque 350 MG/ML 100 ML BTL IJ (21:47)
[2025-01-09] MEDS: Normal Saline - Diluent 50 ML VIAL IJ (21:55)
[2025-01-09] MEDS: Normal Saline Flush 10 ML SYR IVP (21:56)
--- NOTE | 2025-01-09 22:19 | DI.VRAD_ITS ---
PROCEDURE INFORMATION: Exam: CTA Head Without And With Contrast, Arteriography Exam date and time: 01/09/2025 9:33 PM Age: 49 years old Clinical indication: Stroke-like symptoms; Headache; Left upper extremity numbness/paresthesia TECHNIQUE: Imaging protocol: Computed tomographic angiography of the head without and with contrast. Exam focused on the arteries. 3D rendering (Not supervised by radiologist): MIP and/or 3D reconstructed images were created by the technologist. Radiation optimization: All CT scans at this facility use at least one of these dose optimization techniques: automated exposure control; mA and/or kV adjustment per patient size (includes targeted exams where dose is matched to clinical indication); or iterative reconstruction. Contrast material: OMNIPAQUE 350; Contrast volume: 70 ml; Contrast route: INTRAVENOUS (IV); Other technique: STROKE PROTOCOL was implemented. COMPARISON: No relevant prior studies available. FINDINGS: ANTERIOR CIRCULATION: Right internal carotid artery: Intracranial segment is patent with no significant stenosis or occlusion. No aneurysm. Right middle cerebral artery: No occlusion or significant stenosis. No aneurysm. Right anterior cerebral artery: No occlusion or significant stenosis. No aneurysm. Left internal carotid artery: Intracranial segment is patent with no significant stenosis. No aneurysm. Left middle cerebral artery: No occlusion or significant stenosis. No aneurysm. Left anterior cerebral artery: No occlusion or significant stenosis. No aneurysm. POSTERIOR CIRCULATION: Right vertebral artery: No occlusion or significant stenosis. No aneurysm. Left vertebral artery: No occlusion or significant stenosis. No aneurysm. Basilar artery: No occlusion or significant stenosis. No aneurysm. Right posterior cerebral artery: No occlusion or significant stenosis. No aneurysm. Left posterior cerebral artery: No occlusion or significant stenosis. No aneurysm. HEAD: Brain: Normal. No hemorrhage. Unremarkable white matter. No mass effect. Cerebral ventricles: Normal. No ventriculomegaly. Bones: Unremarkable. No acute fracture. Paranasal sinuses: Retention cyst or polyp right maxillary sinus. Mastoid air cells: Visualized mastoids are normal. No mastoid effusion. Soft tissues: Unremarkable. IMPRESSION: 1. No large vessel occlusion. 2. Unremarkable CT head. ASSESSMENT: ASPECTS ([place] Stroke Program Early CT Score) is 10. PROCEDURE INFORMATION: Exam: CTA Neck Without And With Contrast Exam date and time: 01/09/2025 9:33 PM Age: 49 years old Clinical indication: Stroke-like symptoms; Headache; Left upper extremity numbness/paresthesia TECHNIQUE: Imaging protocol: Computed tomographic angiography of the neck without and with contrast. Exam focused on the cervical segments of the vasculature. 3D rendering (Not supervised by radiologist): MIP and/or 3D reconstructed images were created by the technologist. Radiation optimization: All CT scans at this facility use at least one of these dose optimization techniques: automated exposure control; mA and/or kV adjustment per patient size (includes targeted exams where dose is matched to clinical indication); or iterative reconstruction. Contrast material: OMNIPAQUE 350; Contrast volume: 70 ml; Contrast route: INTRAVENOUS (IV); COMPARISON: No relevant prior studies available. FINDINGS: Right common carotid artery: No stenosis. No dissection or occlusion. Right internal carotid artery: No stenosis of the extracranial segment. No dissection or occlusion. Right external carotid artery: No occlusion or stenosis of the origin. Left common carotid artery: No stenosis. No dissection or occlusion. Left internal carotid artery: No stenosis of the extracranial segment. No dissection or occlusion. Left external carotid artery: No occlusion or stenosis of the origin. Right vertebral artery: No stenosis. No dissection or occlusion. Left vertebral artery: No stenosis. No dissection or occlusion. Soft tissues: Normal. No significant soft tissue swelling. Bones/joints: No acute fracture. IMPRESSION: No stenosis or occlusion. REFERENCES: NASCET CRITERIA. The degree of stenosis in the cervical segment of the internal carotid artery is based on NASCET criteria. Normal is no stenosis. Mild is less than 50% stenosis. Moderate is 50-69% stenosis. Severe is 70% to 99% stenosis. Total occlusion is no detectable patent lumen. Dictated and Authenticated by: Archie Wang MD. Orderin Kevin Grimaldo MD
[2025-01-09] MEDS: Normal Saline 1,000 ML 1000 ML IV (22:25)
[2025-01-09] MEDS: Prochlorperazine 10 MG/2 ML VIAL 5 MG IVP (22:25)
--- NOTE | 2025-01-09 23:10 | HPE_ITS ---
Date of service: 01/09/25 Time of Service: 23:10 Assessment and Plan Assessment and plan (1) CVA (cerebral vascular accident): Status: Chronic Assessment and plan: Patient presents with atypical migraine versus CVA. Her CAT scans of brain and vessels are unremarkable. She does have some residual deficits with left-sided facial numbness which is extremely mild. No other deficits noted. We will finish her workup with an MRI, echocardiogram with bubble study, monitoring on telemetry, every 2 hour neurochecks. Per [facility] recommendation, we will continue aspirin and Plavix. TSH, A1c, lipids pending PT, OT, [employer] ordered. Supportive care otherwise. Admitted observation status. History of Present Illness History of Present Illness Chief Complaint: Numbness Narrative: Patient is a 49-year-old woman with a unremarkable past medical history on no medications. She is right-handed. She presents with symptoms concerning for stroke. Patient has had no previous episodes like this. She had a headache in the morning that persisted throughout the day and then around 3 PM began to notice some numbness and tingling in the left side of her body and face. This persisted throughout the evening. 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 She had a prior history of diabetes that resolved after significant weight loss. She denies any tick bites or tick exposures. She has pets at home. No known thyroid issues. Other than the headache and numbness, she reports no focal motor deficits. She denies blurry vision, vision changes, dizziness, lightheadedness, persistent nausea (present this afternoon), vomiting, chest pain, dyspnea, recent illnesses, dysuria or incontinence, fecal issues, lower extremity edema. She does travel a lot for work but reports no swelling or erythema in her legs. Review of Systems Narrative: 10 point review system performed and pertinent findings are as above in HPI. PFSH All Active Problems (Updated 01/09/25 @ 23:55 by Aamir Werner MD) CVA (cerebral vascular accident) (Chronic) Left sided numbness (Acute) Headache (Acute) Mastodynia (Acute) Abnormal skin of vulva (Acute) Symptoms consistent with lichenification rather than decreased estrogen. Plan Rx for clobetasol and follow-up 06/2022 Vaginal dryness, menopausal (Acute) Dyspareunia in female (Acute) Hormone replacement therapy (Acute) 2016. Estradiol 1 mg/day after surgical menopause Medical History Vaginal bleeding 11/2021. Single episode after supracervical hysterectomy and BSO. Patient on estrogen 1 mg/day since 2016. No plan to change hormone formulation. Hypothyroid Erythema nodosum Diabetes Had Gastric sleeve procedure08/27/20 DM resolved Surgical History S/P laparoscopic supracervical hysterectomy (08/06/17) and R salpingo-oophrectomy 2017 - Dr Marmolejo Previous L oophrectomy Status post tonsillectomy and adenoidectomy Tonsillectomy and adenoidectomy section X 2 Oophrectomy, Right (~01/2017) R Salpingo-oophrectomy with hyst Oophrectomy, Left Hysterectomy, Laproscopic (~01/2017) Supra - cervical Endometrial Biopsy 09/11/14-[facility] Cholecystectomy Family History Father Leukemia Grandfather Diabetes CAD (coronary artery disease) Maternal Aunt Personal history of malignant neoplasm BREAST Brother Cancer of kidney Maternal Cousin Breast cancer paternal first cousin Maternal Cousin Breast cancer paternal first cousin Social History Smoking/Tobacco Use Status: Never Smoking risk assessment performed?: Yes Alcohol Intake: never Drug use: Never Substance use type: does not use Household members: spouse Number of Children: 2 current occupation: [employer] Do you feel safe at home: Yes Female Reproductive History Menstrual Menopause type: surgical History History 2 2 Para 2 Hx # Term Pregnancies Multiple births Hx # Pregnancies Ectopic pregnancies AB induced Hx Number of Living Children AB spontaneous Meds Allergies and Home Medications Allergies Allergy/AdvReac Type Severity Reaction Status Date / Time NSAIDS (Non-Steroidal AdvReac Unknown Verified 10/18/24 09:47 Anti-Inflamma Home Medications ?Medication ?Instructions ?Recorded ?Confirmed ?Type estradiol 0.01% (0.1 mg/gram) 0.5 appful vaginal .COMPLEX #42.5 07/07/23 10/11/24 Rx vaginal cream (Estrace) grams clobetasol 0.05 % topical ointment 1 applic topical .COMPLEX #45 grams 03/12/25 03/12/25 Rx Exam Narrative Exam Narrative: Is a normal constitutional exam, she is in no acute distress, her head is atraumatic normocephalic. Pupils are equal round and reactive to light and accommodation. Extraocular movements are intact. She has a normal rate and rhythm and unremarkable cardiac exam. Her lungs are clear to auscultation bilaterally. She has a central adiposity. Her abdomen is otherwise nontender, nondistended. Trace lower extremity edema bilaterally. No lower extremity swelling or erythema. Her neurological exam is highly unremarkable. No dysdiadochokinesia, no dysmetria, no pronator drift. Unremarkable coordination exam otherwise. No motor deficits noted. Reflexes are 2+ throughout. Cranial nerves are without deficit. She does have some mild left-sided facial numbness to palpation. No other sensory deficits or proprioceptive deficits. Results Imaging Imaging Studies: CT H/N IMPRESSION: 1. No large vessel occlusion. 2. Unremarkable CT head. IMPRESSION: No stenosis or occlusion. Labs 01/09/25 21:10 01/09/25 21:10 Labs: Laboratory Results - last 24 hr 01/09/25 21:10 WBC 5.80 RBC 4.57 Hgb 13.3 Hct 40.3 MCV 88 MCH 29.1 MCHC 33.0 RDW 12.8 Plt Count 254 MPV 11.1 H Immature Gran % 0.2 Neutrophils % 52.2 Lymphocytes % 39.1 Monocytes % 5.7 Eosinophils % 2.1 Basophils % 0.7 Nucleated RBC % 0.0 Absolute Neutrophils 3.03 Absolute Lymphocytes 2.27 Absolute Monocytes 0.33 Absolute Eosinophils 0.12 Absolute Basophils 0.04 PT 9.9 INR 1.0 APTT 24.3 Sodium 140 Potassium 4.1 Chloride 102 Carbon Dioxide 28.3 Anion Gap 9.7 BUN 15 Creatinine 0.7 Est GFR (CKD-EPI 2020) 104.65 Glucose 199 H Calcium 9.4 Magnesium 1.9 Total Bilirubin 0.3 AST 21 ALT 41 Alkaline Phosphatase 100 Total Protein 7.4 Albumin 4.1 Last Vital Signs Temp 36.4 C 01/09/25 20:55 Pulse 71 01/09/25 22:50 Resp 12 01/09/25 22:50 BP 142/73 H 01/09/25 22:47 Pulse Ox 97 01/09/25 22:50 Time Spent Time spent with Patient: 40-54 minutes Time was spent: preparing to see the patient(eg.review tests), obtaining and/or reviewing separately otained hiistory, ordering medications,tests, procedures, referring, communicating with other health child care education coordinator, indepentently interpreting results and counseling the patient
[2025-01-09] MEDS: Clopidogrel 300 MG TAB PO (23:11)
[2025-01-09] MEDS: Aspirin 81 MG CHEW CH (23:11)
[2025-01-09 23:50] LABS: Hemoglobin A1C 6.9 % (<5.7)
[2025-01-09 23:53] LABS: Calculated LDL 139 mg/dL (<100); Cholesterol 227 mg/dL (<200); HDL Cholesterol 50 mg/dL (>or=50); TSH 4.11 uIU/mL (0.36-3.74); Triglyceride 193 mg/dL (<150)
[2025-01-10] VITALS (14 sets, daily range): BP systolic 118–129; BP diastolic 72–87; PULSE 53–70; RESP 9–18; TEMP 36–36.8; O2SAT 95–97
--- NOTE | 2025-01-10 | DI.MRI_ITS ---
Exam(s) MR BRAIN WO EXAM: MR BRAIN WO CLINICAL HISTORY: stroke TECHNIQUE: Multiplanar multisequence MRI of the brain was performed. COMPARISON: CT CT BRAIN NECK CTA from 01/09/2025 FINDINGS: VENTRICLES AND EXTRA AXIAL SPACES: Normal in size and morphology for the patient's age. MIDLINE SHIFT: None. CEREBRAL PARENCHYMA: No focus of restricted diffusion to suggest acute infarct. No space-occupying le elicia identified. HEMORRHAGE: None. BRAINSTEM/CEREBELLUM: Normal. CALVARIUM: Normal. VISUALIZED PARANASAL SINUSES/MASTOIDS:Mucous retention cysts are seen in the right maxillary sinus in the right sphenoid sinus. The remaining visualized paranasal sinuses are clear. The mastoid air ce lls are well pneumatized. ROSEBUD OF LAUGHLIN: Normal flow void. PITUITARY GLAND: Unremarkable. OTHER FINDINGS: None. IMPRESSION: No evidence of an acute infarct. DATA REPOSITORY:
--- NOTE | 2025-01-10 03:02 | W.PC.ACHO ---
Registration Status: Primary Language: Preferred Language: ED Information & Data Chief Complaint GenMedical 01/09/25 22:01 Triage Note pt states that she has had a 01/09/25 20:55 PHILLPI all day and that she is having left sided facial numbness along with left sided weakness starting at 1500. Has a hx of bells palsy. Medical / Surgical History (Last Reviewed 01/09/25 @ 21:59 by Dillan Brown MD) Vaginal bleeding Hypothyroid Erythema nodosum Diabetes (Last Reviewed 01/09/25 @ 21:59 by Dillan Brown MD) S/P laparoscopic supracervical hysterectomy (08/06/17) Status post tonsillectomy and adenoidectomy Tonsillectomy and adenoidectomy section Oophrectomy, Right (~01/2017) Oophrectomy, Left Hysterectomy, Laproscopic (~01/2017) Endometrial Biopsy Cholecystectomy Most Recent Vital Signs Temperature 36.4 C 01/09/25 20:55 Temperature Source Oral 01/09/25 20:55 Pulse 64 01/10/25 00:10 Pulse 53 L 01/10/25 01:10 Respiratory Rate 13 01/10/25 01:10 Respiratory Effort Normal 01/09/25 21:59 Respiratory Depth Normal 01/09/25 21:59 Respiratory Pattern Normal 01/09/25 21:59 Blood Pressure 128/72 01/10/25 00:01 Blood Pressure Mean 92 01/10/25 00:01 Blood Pressure Position Sitting 01/09/25 20:55 Pulse Oximetry 96 01/10/25 00:10 Oxygen Delivery Method Room Air 01/09/25 20:55 Oxygen Flow Rate 0 01/09/25 20:55 Allergies NSAIDS (Non-Steroidal Anti-Inflamma Adverse Reaction (Verified 10/18/24 09:47) Unknown d/t bariatric surgery Precautions Isolation Standard precaution 01/09/25 20:57 Active Medications Generic Name Dose Route Start Last Admin Trade Name Freq PRN Reason Stop Dose Admin Iohexol 100 ml 01/09/25 22:00 01/09/25 21:47 Omnipaque 350 Mg/Ml 100 Ml Btl IJ 02/08/25 23:59 70 ml DIRECTED RAISSA Administration Sodium Chloride 0 ml 01/09/25 21:11 01/09/25 21:56 Normal Saline Flush 10 Ml Syr IVP 10 ml PRN PRN Administration Sodium Chloride 50 ml 01/09/25 22:00 01/09/25 21:55 Normal Saline - Diluent 50 Ml Vial IJ 50 ml .FOR DI USE RAISSA Administration IV IV Catheter Type [Right Saline Lock Antecubital] IV Catheter Gauge [Right 18 Antecubital] Diagnostics 01/09/25 Range/Units 21:10 WBC 5.80 (4.4-10.8) 10^3/uL RBC 4.57 (3.93-5.22) 10^6/uL Hgb 13.3 (11.2-15.7) g/dL Hct 40.3 (36.0-46.0) % MCV 88 (80-95) fL MCH 29.1 (27.0-33.0) pg MCHC 33.0 (32.0-36.0) % RDW 12.8 (11.7-14.6) % Plt Count 254 (130-400) 10^3/uL MPV 11.1 H (8.0-11.0) fL Immature Gran % 0.2 % Neutrophils % 52.2 % Lymphocytes % 39.1 % Monocytes % 5.7 % Eosinophils % 2.1 % Basophils % 0.7 % Nucleated RBC % 0.0 (0.0-0.3) % Absolute Neutrophils 3.03 (1.2-6.7) 10^3/uL Absolute Lymphocytes 2.27 (1.2-3.4) 10^3/uL Absolute Monocytes 0.33 (0.1-0.8) 10^3/uL Absolute Eosinophils 0.12 (0.0-0.7) 10^3/uL Absolute Basophils 0.04 (0.0-0.2) 10^3/uL PT 9.9 (9.1-11.1) sec INR 1.0 (0.9-1.1) APTT 24.3 (20.6-30.2) sec Sodium 140 (136-145) mmol/L Potassium 4.1 (3.5-5.1) mmol/L Chloride 102 (98-107) mmol/L Carbon Dioxide 28.3 (21.0-32.0) mmol/L Anion Gap 9.7 (3-11) mmol/L BUN 15 (7-18) mg/dL Creatinine 0.7 (0.55-1.02) mg/dL Est GFR (CKD-EPI 2020) 104.65 (mL/min/1.73m2) Glucose 199 H (74-106) mg/dL Hemoglobin A1c 6.9 H (<5.7) % Calcium 9.4 (8.5-10.1) mg/dL Magnesium 1.9 (1.8-2.4) mg/dL Total Bilirubin 0.3 (0.2-1.0) mg/dL AST 21 (15-37) U/L ALT 41 (14-59) U/L Alkaline Phosphatase 100 (46-116) U/L Total Protein 7.4 (6.4-8.2) g/dL Albumin 4.1 (3.4-5.0) g/dL Triglycerides 193 H (<150) mg/dL Total Cholesterol 227 H (<200) mg/dL LDL Cholesterol, Calc 139 H (<100) mg/dL HDL Cholesterol 50 (>or=50) mg/dL TSH 4.11 H (0.36-3.74) uIU/mL [id number] Documentation Fingerstick Glucose Start: 01/09/25 21:11 Freq: .Stat Status: Active Protocol: Activity Type Activity Date Activity User E-sign Co-sign Detail Recorded Client Recorded Date Recorded By Document 01/09/25 21:18 BKG DAEMON(3) [id number] 01/09/25 21:25 BKG DAEMON(4) Intake and Output - 24 Hour Total 01/09/25 20:51 thru 01/09/25 20:55 Weight 44.452 kg Falls Risk Assessment History of Falls No History 01/09/25 21:58 Contributing Factors No Factors 01/09/25 21:58 Ambulatory Aids Independent 01/09/25 21:58 Tubes/Lines None 01/09/25 21:58 Gait Evaluation No gait disturbance 01/09/25 21:58 Cognition No cognitive impairment 01/09/25 21:58 Fall Total Score 0 01/09/25 21:58 Level of Risk Standard/Low Risk 01/09/25 21:58 Problems (Last Reviewed 01/09/25 @ 21:59 by Dillan Brown MD) CVA (cerebral vascular accident) (Chronic) v v v v v v v v v Sending and/or Receiving Nurses: Please use comment section below to note any information pertinent to the patient hand-off not included above. Information / Comments: Pt arrived to ED with concerns of possible stroke. L face/side numbness starting 01/09/25. Current;y pt has no deficits at this time. Pt A&Ox4, ind, 18 RAC. Pt recieved 1 Liter NS and 1 dose of compazine in ED. VSS. Report received from: Carl Martinez RN
[2025-01-10 06:50] LABS: HCT 36.6 % (36.0-46.0); HGB 12.4 g/dL (11.2-15.7); MCH 29.4 pg (27.0-33.0); MCHC 33.9 % (32.0-36.0); MCV 87 fL (80-95); MPV 11.4 fL (8.0-11.0); Platelet Count 254 10^3/uL (130-400); RBC 4.22 10^6/uL (3.93-5.22); RDW 12.9 % (11.7-14.6); RDW-SD 40.4 fL; WBC 6.32 10^3/uL (4.4-10.8)
[2025-01-10 07:11] LABS: Anion Gap 11.2 mmol/L (3-11); BUN 10 mg/dL (7-18); CO2 25.8 mmol/L (21.0-32.0); CREATININE 0.6 mg/dL (0.55-1.02); Chloride 105 mmol/L (98-107); Estimated GFR 108.61 (mL/min/1.73m2); Glucose 136 mg/dL (74-106); Magnesium 1.7 mg/dL (1.8-2.4); Potassium 3.9 mmol/L (3.5-5.1); Sodium 142 mmol/L (136-145)
[2025-01-10] MEDS: Aspirin E.C. 81 MG TABEC PO (08:19)
[2025-01-10] MEDS: Clopidogrel 75 MG TAB PO (08:19)
[2025-01-10] MEDS: Enoxaparin 40 MG/0.4 ML SYR SC (08:19)
[2025-01-10] MEDS: Normal Saline Flush 10 ML SYR IVP (08:20)
--- NOTE | 2025-01-10 09:51 | IN_ITS ---
PT Notes Visit Reasons: Cerebrovascular accident Physical Therapy Inpatient Initial Evaluation Date:01/10/2025 Referring Doctor: Dr Werner PT Orders: PT CONSULT: Safety Consult for D/C Precautions: [] Patient Profile/Admitting Diagnosis: Pt is a 49 yo female presented to ED on 01/09/25 from home after experiencing a headache all day then developed left sided numbness and weakness prompting her to go to the ED. Head and neck CTA no abnormality. Labs Teleneuro Consult completed recommending admit for further testing including ECHO, MRI. MRI completed 01/10 No acute findings. PT Consult placed for safe discharge. PMHX: Left sided numbness (Acute) Headache (Acute) Mastodynia (Acute) Abnormal skin of vulva (Acute) Symptoms consistent with lichenification rather than decreased estrogen. Plan Rx for clobetasol and follow-up 06/2022Vaginal dryness, menopausal (Acute) Dyspareunia in female (Acute) Hormone replacement therapy (Acute) 2016. Estradiol 1 mg/day after surgical menopause Medical History Vaginal bleeding 11/2021. Single episode after supracervical hysterectomy and BSO. Patient on estrogen 1 mg/day since 2017. No plan to change hormone formulation.Hypothyroid Erythema nodosum Diabetes Had Gastric sleeve procedure08/27/20 DM resolved Surgical History S/P laparoscopic supracervical hysterectomy (08/06/17) and R salpingo-oophrectomy 2017 - Dr Jaleel Perkins L oophrectomy Status post tonsillectomy and adenoidectomy Tonsillectomy and adenoidectomy section X 2Oophrectomy, Right (~01/2017) R Salpingo-oophrectomy with hystOophrectomy, Left Hysterectomy, Laproscopic (~01/2017) Supra - cervicalEndometrial [facility]opsy [facility] Social History/Home Situation: Pt resides in a 2 story home with no steps to enter FOS with rail to bedroom and basement. Pt independent ADL. iADL, finances, meal per, homemaking, gardening, driving, shopping. Pt works from home. She enjoys gardening. Equipment Owned/DME: none Subjective: Pt reports she feels fine. She denies numbness or heaviness in her left arm and leg.Pt is agreeable to participate in evaluation. Pt reports she has been having pain in her left shoulder for along time and is awaiting and MRI. Objective: [] General Observation: young female approached as she was walking out of the bathroom. Mental Status: Alert and oriented x 4, cooperative, pleasant able to follow multidirections without assistance, Pain: pain in left shoulder with ER and flexion ROM: [] Right Upper Extremity: WNL Left Upper Extremity: WFL painful ER and flexion Right Lower Extremity:WNL Left Lower Extremity: WNL Strength: [] Right Upper Extremity: 5/5 Left Upper Extremity: GHJ flexion 4-/5, abd: 4-/5, elbow 4/5, grasp strong Strength limited by pain. Pt reports he is awaiting MRI Right Lower Extremity: 5/5 Left Lower Extremity:5/5 Sensation: Intact Bed Mobility/Transfers: [] Supine to sit independent Sit to stand independent Stand to sit independent Bed to chair independent Gait: Independent without assistive device 600 feet including directional changes obstacle management normal gait pattern no deficits noted Stairs: Reciprocal pattern without use of rail 12 steps independent Balance: [] Static Sitting: Normal Dynamic Sitting: Normal Static Standing: Normal Dynamic Standing: Normal Dugan balance test: 56 out of 56 Special Tests: [] Mobility Limitations Standardized Measure [] [facility] 6 clicks Basic Mobility Inpatient Short Form: [] Raw Score: 24 CMS Score: 0% Informed Consent/Education: Patient instructed in purpose of PT consult. Assessment: Patient is a 49-year-old female initially presenting to the ED with headache and left-sided numbness and reports of heaviness/weakness. Patient demonstrates no focal deficits at this time able to ambulate independently without device perform stairs without railing independently. Patient scored 56 out of 56 on the Dugan balance test. Patient does have reports of left shoulder pain with some weakness noted related to the pain with flexion and external rotation. Patient reports she is awaiting an MRI for this. These deficits do not appear to be related to this current hospitalization. No further inpatient PT indicated at this time. Patient may benefit from outpatient PT to address left shoulder deficits after MRI. Patient is assessed as a low complexity based on the following: History: 49-year-old female with past medical history as indicated above Examination: As above Presentation: Stable Decision Making: Low Goals: N/A. PT evaluation Plan of Care/Treatment Plan: N/A. PT evaluation only DISCHARGE RECOMMENDATIONS: No further PT indicated as inpatient. Patient to be discharged home when medically appropriate and follow-up with primary MD regarding left shoulder deficits with potential for outpatient PT. TREATMENT CODE/TIME: 83020/[id number] Thank you for the opportunity to participate in the care of this patient. Tori Bean PT [facility]
[2025-01-10] MEDS: Acetaminophen 500 MG TAB 1000 MG PO (14:57)
[2025-01-10] MEDS: Magnesium Chloride 64 MG TABCR PO (14:57)
--- NOTE | 2025-01-10 15:25 | DSE_ITS ---
Date of service: 01/10/25 Time of Service: 15:25 DS: Diagnosis Discharge Diagnosis (1) CVA (cerebral vascular accident): Status: Chronic Discharge Plan Disposition Patient Disposition: Home Condition: Good Discharge Details Reason For Visit: CVA Admit Date/Time: 01/09/25 23:25 Admit Provider: Aamir Werner Attending Provider: Aamir Werner Primary Care Provider: Flavia Briceno Hospital Course Hospital Course: The patient is a 49-year-old woman who presented with concern for an acute cerebrovascular event following a persistent headache and subsequent onset of left-sided facial and body numbness. Initial imaging, including non-contrast CT head and CT angiography of the head and neck, was unremarkable. Neurological examination remained stable throughout her observation period, notable only for mild left facial numbness without focal motor deficits. Further workup with MRI brain and echocardiogram with bubble study were both negative for acute pathology or embolic source. EF 58%, no valvular disease, no evidience of intracardiac shunt. She was observed without symptom progression, and no acute intervention was deemed necessary. Potentially TIA or atypical migraine. Her ABCD? score is 2 (age, blood pressure, clinical features, diabetes, duration), indicating low risk for early stroke recurrence. Discharge Plan: * Discharged home in stable condition * Start aspirin 81 mg daily * Start pantoprazole 40 mg orally once daily for gastric protection due to history of gastric sleeve surgery * Follow up with primary care provider (PCP) within one week * Outpatient neurology referral by PCP for follow-up as needed Discharge Condition: Stable Discharge Medications: * Continue estradiol and clobetasol as per prior regimen * Aspirin 81mg oral daily Follow-Up: * PCP: within 1 week * Monitor for recurrence of focal symptoms or new neurological deficits Instructions: * Return to ED for worsening symptoms, new weakness, slurred speech, vision changes, or altered consciousness. * Encourage hydration, sleep hygiene, and headache triggers avoidance. Home Meds and New Rx's Prescriptions: New pantoprazole 40 mg tablet,delayed release (DR/EC) 40 mg PO DAILY Qty: 30 0RF aspirin 81 mg Tablet,Delayed Release (Dr/Ec) 81 mg PO DAILY Qty: 0 0RF Continued clobetasol 0.05 % ointment 1 applic topical .COMPLEX Qty: 45 4RF Rx Instructions: 1 applic topically rub tiny amount on vulva twice daily x2w then twice weekly; estradiol [Estrace] 0.01 % (0.1 mg/gram) cream 0.5 appful vaginal .COMPLEX Qty: 42.5 4RF Rx Instructions: twice weekly Discharge Instructions Instructions: Transient ischemic attack, Aspirin Additional Instructions: Discharge Medications: * Continue estradiol and clobetasol as per prior regimen * Start Aspirin 81mg oral daily Follow-Up: * PCP: within 1 week * Monitor for recurrence of focal symptoms or new neurological deficits Instructions: * Return to ED for worsening symptoms, new weakness, slurred speech, vision changes, or altered consciousness. * Encourage hydration, sleep hygiene, and headache triggers avoidance. Stand Alone Forms: Nursing Discharge Form Referrals: Flavia Briceno [Primary Care Provider] - (1-2 weeks post hospitalization for stroke like symptoms - negative MRI negative Echo. I called your PCP and left a voicemail, they will call you for a follow up in 1-2 weeks. ) Activity:: Activity as Tolerated Equipment/Supplies:: No Equipment Needed Diet:: As Tolerated Discharge Orders Discharge Orders: Discharge Order (Routine); Ordered 01/10/25 Ordered By: Nava Snyder DS: Summary Time Spent with Patient providing and/or coordinating discharge services: Greater than 30 minutes Status at Discharge Functional status at discharge: independent ambulation Overall status at discharge: patient is back to baseline Mental Status: mental status grossly normal Speech and Movement: speech and movement normal Mood: congruent mood Affect: normal affect Quality:SDOH Health Related Social Needs: No Data to Display Exam Narrative Exam Narrative: The patient is in no acute distress. Constitutional exam is normal. Head is atraumatic and normocephalic. Pupils are equal, round, and reactive to light and accommodation. Extraocular movements are intact. Cardiac exam reveals normal rate and rhythm with no abnormalities. Lungs are clear to auscultation bilaterally. She has central adiposity. Abdomen is soft, nontender, and nondistended. Trace bilateral lower extremity edema noted, without swelling or erythema. Neurological exam is largely unremarkable. No dysdiadochokinesia, dysmetria, or pronator drift. Coordination and motor exams are normal. Reflexes are 2+ throughout. Cranial nerves are intact. No sensory or proprioceptive deficits noted. Psych Mental Status: mental status grossly normal Speech and Movement: speech and movement normal Mood: congruent mood Affect: normal affect DS: Data Vitals/I&O Vitals and I&O: Vital Signs Temperature 36.8 C 01/10/25 11:25 Temperature Source Temporal Artery Scan 01/10/25 11:25 Pulse 61 01/10/25 11:25 Pulse Rhythm Regular 01/10/25 01:42 Pulse 53 L 01/10/25 01:10 Respiratory Rate 17 01/10/25 11:25 Respiratory Effort Normal, Non-Labored 01/10/25 01:42 Respiratory Depth Normal 01/10/25 01:42 Respiratory Pattern Normal 01/10/25 01:42 Blood Pressure 126/87 01/10/25 11:25 Blood Pressure Mean 100 01/10/25 11:25 Blood Pressure Position Sitting 01/09/25 20:55 Pulse Oximetry 97 01/10/25 11:25 Oxygen Delivery Method Room Air 01/10/25 11:25 Oxygen Flow Rate 0 01/10/25 11:25 Pain Level 3 01/10/25 11:25 Intake & Output 01/09/25 01/10/25 01/10/25 23:59 11:59 23:59 Weight 44.452 kg 102.648 kg Other: Urine Appearance Clear Comment pt voids independently, no issues reported Data Completed and Pending Labs on day of discharge: Labs from last 24 hours 01/10/25 01/09/25 05:52 21:10 WBC 6.32 5.80 RBC 4.22 4.57 Hgb 12.4 13.3 Hct 36.6 40.3 MCV 87 88 MCH 29.4 29.1 MCHC 33.9 33.0 RDW 12.9 12.8 Plt Count 254 254 MPV 11.4 H 11.1 H Immature Gran % 0.2 Neutrophils % 52.2 Lymphocytes % 39.1 Monocytes % 5.7 Eosinophils % 2.1 Basophils % 0.7 Nucleated RBC % 0.0 Absolute Neutrophils 3.03 Absolute Lymphocytes 2.27 Absolute Monocytes 0.33 Absolute Eosinophils 0.12 Absolute Basophils 0.04 PT 9.9 INR 1.0 APTT 24.3 Sodium 142 140 Potassium 3.9 4.1 Chloride 105 102 Carbon Dioxide 25.8 28.3 Anion Gap 11.2 H 9.7 BUN 10 15 Creatinine 0.6 0.7 Est GFR (CKD-EPI 2020) 108.61 104.65 Glucose 136 H 199 H Hemoglobin A1c 6.9 H Calcium 9.0 9.4 Magnesium 1.7 L 1.9 Total Bilirubin 0.3 AST 21 ALT 41 Alkaline Phosphatase 100 Total Protein 7.4 Albumin 4.1 Triglycerides 193 H Total Cholesterol 227 H LDL Cholesterol, Calc 139 H HDL Cholesterol 50 TSH 4.11 H PFSH All Active Problems (Updated 01/10/25 @ 01:28 by SERGIO YAO) CVA (cerebral vascular accident) (Chronic) Left sided numbness (Acute) Headache (Acute) Mastodynia (Acute) Abnormal skin of vulva (Acute) Symptoms consistent with lichenification rather than decreased estrogen. Plan Rx for clobetasol and follow-up 06/2022 Vaginal dryness, menopausal (Acute) Dyspareunia in female (Acute) Hormone replacement therapy (Acute) 2017. Estradiol 1 mg/day after surgical menopause Medical History Vaginal bleeding 11/2021. Single episode after supracervical hysterectomy and BSO. Patient on estrogen 1 mg/day since 2017. No plan to change hormone formulation. Hypothyroid Erythema nodosum Diabetes Had Gastric sleeve procedure08/27/20 DM resolved Surgical History S/P laparoscopic supracervical hysterectomy (08/06/17) and R salpingo-oophrectomy 2016 - Dr Marmolejo Previous L oophrectomy Status post tonsillectomy and adenoidectomy Tonsillectomy and adenoidectomy section X 2 Oophrectomy, Right (~01/2017) R Salpingo-oophrectomy with hyst Oophrectomy, Left Hysterectomy, Laproscopic (~01/2017) Supra - cervical Endometrial Biopsy 09/11/14-[facility] Cholecystectomy Family History Father Leukemia Grandfather Diabetes CAD (coronary artery disease) Maternal Aunt Personal history of malignant neoplasm BREAST Brother Cancer of kidney Maternal Cousin Breast cancer paternal first cousin Maternal Cousin Breast cancer paternal first cousin Social History Smoking/Tobacco Use Status: Never Smoking risk assessment performed?: Yes Alcohol Intake: never Drug use: Never Substance use type: does not use Household members: spouse Housing: house Number of Children: 2 current occupation: [employer] Do you feel safe at home: Yes Female Reproductive History Menstrual Menopause type: surgical History History 2 Para 2 Hx # Term Pregnancies Multiple births Hx # Pregnancies Ectopic pregnancies AB induced Hx Number of Living Children AB spontaneous Time Spent with Patient Time Spent with Patient: 45-69 minutes Time was spent: preparing to see the patient(eg.review tests), ordering medications,tests, procedures, referring, communicating with other health intensive care specialist, indepentently interpreting results, counseling the patient and care coordination
--- NOTE | 2025-01-10 18:36 | PDOC.CMPRO ---
Date of service: 01/10/25 Time of Service: 18:36 Care Management Progress Note Progress Note Text Progress Note Text: Ilda presented to the ED last night with c/o a persistent PHILLIP and left sided facial and body numbness. She was admitted to observation for a CVA work up. Initial imaging, including non-contrast CT head and CT angiography of the head and neck, was unremarkable. Neurological examination remained stable throughout her observation period, and she was discharged home. When CM met with Ilda, her was visiting. Ilda stated that she really felt so much better and was waiting for her echocardiogram results before being discharged. Ilda is independent in the community and denied the need for any community supports. Ilda also did not require a return to work note. Discharge Potential Discharge Needs: PCP F/U Appt Anticipated Barriers to Discharge: None Identified Patient/Family Education Needs: Review discharge instructions, discuss Ask Me Three Transportation: Private vehicle (with , Stevie) Plan: Ilda was discharged home earlier today with no new services. She will f/u with her PCP and continue per her plan of care. Social Determinants of Health Screening Social Determinants of health last assessed in clinic: 01/10/25 Will the Patient Participate in the Screening?: Yes Do you worry about having a steady place to live?: no Problems where you live: no known problems In the past 12 months, have you had to go without electric, gas, oil or water in your home?: no 1. Within the past 12 months, we worried whether our food would run out before we got money to buy more.: Never true 2. Within the past 12 months, the food we bought just didn't last and we didn't have money to get more.: Never true Has lack of transportation kept you from medical appointments or from doing things needed for daily living?: no Has anyone in your life made you feel unsafe or unsupported?: no How hard is it for you to pay for the very basics like food, housing, medical care, and heating? Would you say it is:: Not hard at all Do you want help finding or keeping work or a job?: I do not need or want help If for any reason you need help with day-to-day activities such as bathing, preparing meals, shopping, managing finances, etc., do you get the help you need?: I don?t need any help How often do you feel lonely or isolated from those around you?: Never Do you speak a language other than [place] Sor[place] at home?: No Does the patient want assistance with any of the above?: No
== END 2025-01-10 16:31 | disposition home or self-care (01) ==
LOC: ER 01-10 00:31 → MS 01-10 01:28
PROVIDERS: Admitting Provider Internal Medicine; Emergency Provider Emergency Medicine; PCP Internal Medicine; Responsible Provider Nurse Practitioner Family; Visit Provider Internal Medicine
DX: R51.9 Headache, unspecified (principal); R20.2 Paresthesia of skin; E03.9 Hypothyroidism, unspecified; Z98.84 Bariatric surgery status
CPT/HCPCS: 00123; 36415; 36416; 70496; 70498; 80048; 80053; 80061; 82962; 85027; 93005; 96361; 96372; 96374; 97161; 99285; J1650; 70551; 83036; 83735; 84443; 85025; 85610; 85730; 93010; 93306; 99222; 99239; G0378; J0780; J3490